=== PATIENT | male | born 1995 | race Caucasian/White ===

== ENCOUNTER 2021-05-13 08:26 | Emergency (ER) | payer OTHER ==
[~2021-05-13] VITALS: Ht 190.5 cm; Wt 129.6 kg
[2021-05-13] MEDS ORDERED: MORPHINE 4 MG/ML 1ML VIAL/SYRINGE (J2270) IV ONE (08:40)
[2021-05-13] MEDS ORDERED: KETOROLAC 30 MG/ML 1ML VIAL IV ONE (08:40)
[2021-05-13] MEDS ORDERED: ONDANSETRON 4MG/2ML VIAL IV ONE (08:40)
--- NOTE | 2021-05-13 09:08 | REP ---
INDICATION: trauma COMPARISON: None. TECHNIQUE: Two limited images of the right shoulder FINDINGS: Anterior glenohumeral joint dislocation noted. IMPRESSION: Anterior glenohumeral joint dislocation. <Electronically signed by Benito Hood > 05/13/21 0948
[2021-05-13] MEDS ORDERED: KETAMINE HCL 200 MG/20 ML VIAL IV ONE (09:15)
[2021-05-13] MEDS ORDERED: NS 1,000 ML IV SCH (09:15)
[2021-05-13] MEDS: propofoL 200 MG/20 ML VIAL IV.PROC PRN ×2 (09:39→09:41)
--- NOTE | 2021-05-13 10:04 | REP ---
INDICATION: POST REDUCTION COMPARISON: None. TECHNIQUE: Single portable AP view FINDINGS: Satisfactory reduction at the glenohumeral joint is suggested. IMPRESSION: Satisfactory reduction at the glenohumeral joint suggested. <Electronically signed by Benito Hood > 05/13/21 1000
[2021-05-13 11:56] VITALS: BP 155/70
== END 2021-05-13 12:14 | disposition home or self-care (01) ==
LOC: M ED 08:26
DX: S43.004A Unspecified dislocation of right shoulder joint, initial encounter (principal); X50.9XXA Other and unspecified overexertion or strenuous movements or postures, initial encounter; Y92.89 Other specified places as the place of occurrence of the external cause; Y93.B2 Activity, push-ups, pull-ups, sit-ups
CPT/HCPCS: 23650; 73020; 73030; 93041; 94760; 96361; 96374; 96375; 99152; 99291; J1885; J2270; J2405

== ENCOUNTER → 2021-07-23 | Outpatient (REF) | payer OTHER ==
[2021-07-23 11:05] LABS: SEMEN APPEARANCE OPAQUE (OPAQUE)
[2021-07-23 11:06] LABS: SEMEN VISCOSITY LIQUID (LIQUID); SEMEN VOLUME 3.2 ml (2.0-5.0); WBC CONCENTRATION >1 M/ml (<=1 M/ml)
[2021-07-23 11:07] LABS: SPERM CONCENTRATION 46.1 M/ml (>=15.0)
== END ==
LOC: M LAB REF 10:45
PROVIDERS: ATTEND Physician Assistant
DX: N46.9 Male infertility, unspecified (principal)

== ENCOUNTER → 2021-07-28 | Outpatient (REF) | payer OTHER ==
[2021-07-28 12:13] LABS: SEMEN APPEARANCE OPAQUE (OPAQUE); SEMEN VISCOSITY VISCOUS (LIQUID); SEMEN VOLUME 3.3 ml (2.0-5.0); WBC CONCENTRATION <=1 M/ml (<=1 M/ml)
[2021-07-28 12:14] LABS: SPERM CONCENTRATION 50.8 M/ml (>=15.0)
== END ==
LOC: M LAB REF 11:44
PROVIDERS: ATTEND Physician Assistant
DX: N46.9 Male infertility, unspecified (principal)

== ENCOUNTER → 2021-08-11 | Outpatient (REF) | payer OTHER ==
[2021-08-11 12:45] LABS: SEMEN APPEARANCE OPAQUE (OPAQUE); SEMEN VISCOSITY LIQUID (LIQUID); SPERM CONCENTRATION 122.1 M/ml (>=15.0); WBC CONCENTRATION <=1 M/ml (<=1 M/ml)
== END ==
LOC: M LAB REF 12:10
PROVIDERS: ATTEND Physician Assistant
DX: N46.9 Male infertility, unspecified (principal)

== ENCOUNTER 2021-10-21 08:42 | Emergency (ER) | payer OTHER ==
[~2021-10-21] VITALS: Ht 190.5 cm; Wt 138.3 kg
--- OUTSIDE RECORDS SUMMARY | 2021-10-21 08:49 | CCD ---
Author Author [facility] Address Unknown Phone Unavailable Care Team Providers Care Telecommunication Operator Name Role Phone JEREL ACEVEDO Unavailable Unavailable GASPER, FÁTIMA PA-C Unavailable Unavailable GASPER, FÁTIMA PA-C Unavailable Unavailable GASPER, FÁTIMA PA-C Unavailable Unavailable GASPER, FÁTIMA PA-C Unavailable Unavailable GASPER, FÁTIMA PA-C Unavailable Unavailable GASPER, FÁTIMA PA-C Unavailable Unavailable GASPER, FÁTIMA PA-C Unavailable Unavailable [facility] Unavailable Unavailable Re-disclosure Warning The records that you are about to access may contain information from federally-assisted alcohol or drug abuse programs. If such information is present, then the following federally mandated warning applies: This information has been disclosed to you from records protected by federal confidentiality rules (42 CFR part 2). The federal rules prohibit you from making any further disclosure of this information unless further disclosure is expressly permitted by the written consent of the person to whom it pertains or as otherwise permitted by 42 CFR part 2. A general authorization for the release of medical or other information is NOT sufficient for this purpose. The Federal rules restrict any use of the information to criminally investigate or prosecute any alcohol or drug abuse patient.The records that you are about to access may contain highly sensitive health information, the redisclosure of which is protected by Article 27-F of the [place] State Public Health law. If you continue you may have access to information: Regarding HIV / AIDS; Provided by facilities licensed or operated by the [facility] Office of Mental Health; or Provided by the [facility] Office for People With Developmental Disabilities. If such information is present, then the following [facility] mandated warning applies: This information has been disclosed to you from confidential records which are protected by state law. State law prohibits you from making any further disclosure of this information without the specific written consent of the person to whom it pertains, or as otherwise permitted by law. Any unauthorized further disclosure in violation of state law may result in a fine or correction sentence or both. A general authorization for the release of medical or other information is NOT sufficient authorization for further disc losure. Encounters Encounter Providers Location Date Indications Data Source(s ) Outpatient Attender: FÁTIMA MUNGUIACConsultant: [facility] 08/27/2021 09:17:45 AM EDT - 08/28/2021 10:26:00 AM EDT [facility] Patient discharged. Outpatient Attender: NUVIA Alonzoant: [facility] 07/23/2021 11:24:00 AM EDT - 07/23/2021 12:24:00 PM EDT [facility] Immunizations Vaccine Date Status Description Data Source(s) COVID-19 VACCINE Pfizer 04/21/2021 12:00:00 AM EDT completed [facility] Vaccine Series Complete: NOThis Data was Submitted to [facility] Via [employer]. Medications No Information Insurance Providers Payer name Policy type / Coverage type Policy ID Covered alliance party ID Covered alliance party's relationship to vance Policy Vance Plan Information [facility] ACTIVE DUTY [id number] SP [id number] [facility] HUMANA - O/P [id number] 18 [id number] Problems, Conditions, and Diagnoses Code Display Name Description Problem Type Effective Dates Data Source(s) X69109 Primary osteoarthritis, right shoulder P rimary osteoarthritis, right shoulder Diagnosis 08/28/2021 09:26:00 AM EDT [facility] M7521 Bicipital tendinitis, right shoulder Bicipital t endinitis, right shoulder Diagnosis 07/23/2021 11:24:00 AM EDT [facility] [id number] Other displaced fracture of upper end of right humerus, initial encounter for closed fracture Other displaced fracture of upper end of right humerus, initial encounter for closed fracture Diagnosis 021 11:24:00 AM EDT [facility] [id number] Superior glenoid labrum lesion of right shoulder, initial encounter Superior glenoid labrum lesion of right shoulder, initial encounter Diagnosis 07/23/2021 11:24:00 AM EDT [facility] Surgeries/Procedures No Information Results ID Date Data Source [id number] 08/29/2021 05:36:00 PM EDT [facility] [address] [place] [address] PHONE: [phone] FAX: [phone] Name .................. : CHANTAL Barbosa Acct Number.................. : [id number] ROOM. ................. : Number ................... : [id number] Stay type ............. : O/P Discharge Date......... ... : Admit Date ......... : Admit Phys .................... : Nov Date of ....... : 1995 Family Phys ................... : UNKNOWN Phone .................. : /[phone] Age ................................ : 25 Film# .................. .:[id number] Sex ................................. : M Unsigned transcriptions are preliminary reports and do not represent a medical or legal document CT UPPER EXT RT W/O CONT [id number] COMPLETE:08/28/21 10:17 88312 Reason for Exam: OTHER INSTABILITY, RT SHOULDER CT RIGHT SHOULDER WITHOUT IV CONTRAST INDICATION: Evaluation for potential glenoid bone loss. COMPARISON: None. Correlation with MRI 17/05/2021 CONTRAST: None 3-D reconstruction was created by the technologist with remote humeral head per request. This demonstrates bony deficiencies of the anterior-inferior glenoid described below. PROCEDURE: Axial images are obtained. Multiplanar reconstructions are performed. One or more of the following dose reduction techniques were utilized in effectively lowering the radiation dose for this examination: Automated Exposure Control, Adjustment of the mA and/or kV according to patient size, or Iterative reconstruction. FINDINGS: Hill-Sachs deformity posterior humeral head as noted on prior MR. There are a few small sclerotic foci in the humeral head and acromion typical of benign bone islands. Multiple subcortical cysts anterior inferior bony glenoid, Along the anterior inferior glenoid rim there are areas with cystic changes ex tending to cortical margin with loss of intact bony glenoid rim spanning approximately 1 cm. Details regarding labral repair and recurrent injury noted on MRI. No acute fracture. Mild arthropathic changes chromic clavicular joint. IMPRESSION: Bony degenerative changes anterior inferior glenoid with small areas of loss of intact bony glenoid rim. Page 1 of 2 [facility] [address] [place] [address] PHONE: [phone] FAX: [phone] Name .................. : [id number] ROOM. ................. : Number ................... : [id number] Stay type ............. : O/P Discharge Date......... ... : Admit Date ......... : Admit Phys .................... : GASPER NOV Date of ....... : 1995 Family Phys ....... ............ : UNKNOWN Phone .................. : [phone] Age ................................ : 25 Film# .................. .:[id number] Sex ................................. : M Unsigned transcriptions are preliminary reports and do not represent a medical or legal document CT UPPER EXT RT W/O CONT [id number] COMPLETE:08/28/21 10:17 72970 Reason for Exam: OTHER INSTABILITY, RT SHOULDER Electronically Reviewed and Signed By Blayne Jay MD , 08/29/21 17:36, SCB Transcribe Initials: VETO , Transcribe Date: 08/28/21 18:05, Dictation Date: Copy for: GASPER FAJARDO Copy for: 710 MED REC Page 2 of 2 Name Value Range Interpretation Code Description Data Mally rce(s) Supporting Document(s) ID Date Data Source [id number] 07/23/2021 02:07:00 [place] [address] PHONE: [phone] FAX: [phone] Name .................. : CHANTAL Barbosa Acct Number.................. : [id number] ROOM. ................. : MR Number ................... : [id number] Stay type ............. : O/P Discharge Date......... ... : 07/23/21 Admit Date .... ..... : 07/23/21 Admit Phys .................... : KRISTINA ASNTAMARIA Date of ....... : 1995 Family Phys ................... : UNKNOWN Phone .................. : [phone] Age ................................ : 25 Film# .................. .:[id number] Sex ................................. : M Unsigned transcriptions are preliminary reports and do not represent a medical or legal document INJECTION FOR SHOULDER ARTHRO [id number] COMPLETE:07/23/21 11:35 Reason for Exam: R SHOULDER PAIN EXAM: Arthrogram of the right shoulder HISTORY: Recurrent dislocation, shoulder pain COMPARISON: None. PROCEDURE: The risks and benefits of the procedure were discussed with the patient. Informed consent was obtained. A mixture of 10 cc Optiray 350, 10 cc saline and 0.15 cc of Gadavist was prepared. Local anesthesia applied using a 25-gauge needle. A needle was then advanced into the right shoulder joint. Confirmation of intra- articular needle tip placement was obtained using a small test injection. This was followed by injection of 15 mL of the dilute contrast mixture. The needle was withdrawn without complication. The patient tolerated the procedure well. Total radiation exposure time: 22 seconds Number of images obtained: 1 FINDINGS: No abnormalities identified. IMPRESSION: Successful arthrogram. MRI to follow. Electronically Reviewed and Signed By Ken Weinberg MD , 07/23/21 14:07, BAILEY Page 1 of [address] [place] [address] PHONE: [phone] FAX: [phone] Name .................. : CHANTAL Barbosa Acct Number.................. : [id number] ROOM. ................. : Number ................... : [id number] Stay type ............. : O/P Discharge Date......... ... : 07/23/21 Admit Date ......... : 07/23/21 Admit Phys .................... : KRISTINA SANTAMARIA Date of ....... : 1995 Family Phys ................... : UNKNOWN Phone .................. : [phone] Age ................................ : 25 Film# .................. .:[id number] Sex ................................. : M Unsigned transcriptions are preliminary reports and do not represent a medical or legal document INJECTION FOR SHOULDER ARTHRO [id number] COMPLETE:07/23/21 11:35 Reason for Exam: R SHOULDER PAIN Transcribe Initials: SSR, Transcribe Date: 07/23/21 13:48, Dictation Date: Copy for: KRISTINA BELTRÁN Copy for: 710 MED REC Page 2 of 2 Name Value Range Interpretation Code Description Data Mally rce(s) Supporting Document(s) ID Date Data Source [id number] 07/23/2021 02:10:00 PM EDT [facility] [address] [place] [address] PHONE: [phone] FAX: [phone] Name .................. : CHANTAL Barbosa Acct Number.................. : [id number] ROOM. ................. : MR Number ................... : [id number] Stay type ............. : O/P Discharge Date......... ... : 07/23/21 Admit Date .... ..... : 07/23/21 Admit Phys .................... : KRISTINA SANTAMARIA Date of ....... : 1995 Family Phys ................... : UNKNOWN Phone .................. : [phone] Age ................................ : 25 Film# .................. .:[id number] Sex ................................. : M Unsigned transcriptions are preliminary reports and do not represent a medical or legal document MRI UPPER EXT JOINT W CONT RT [id number] COMPLETE:07/23/21 13:05 [facility] Reason for Exam: R SHOULDER PAIN MRI RIGHT SHOULDER WITH CONTRAST INDICATION: Dislocation, shoulder pain. COMPARISON: None CONTRAST: Intra-articular contrast from a direct shoulder arthrogram. TECHNIQUE: Multiplanar imaging is performed of the shoulder using multiple pulse sequences. FINDINGS: ROTATOR CUFF: Joint space is opacified following an arthrogram. No extension of contrast into the subacromial subdeltoid bursa. The rotator cuff tendons are intact. No full thickness tear identified. No muscle atrophy or edema. BICPEPS TENDON: Long head biceps tendon intra-articular portion is nonvisualized. There is metal artifact below the bicipital groove just below the surgical neck of the humerus anteriorly and the biceps tendon is visible below this. This suggests prior tenodesis. GLENOID LABRUM: Multiple anchor tracks are seen in the anterior-inferior glenoid from previous labral repair. The anterior inferior labrum is blunted and irregular. It is displaced anteromedially 2 mm. Using the sagittal oblique is reference image with 9:00 anterior, the area involved extends from 79:00. The superior labrum is also small and blunted. Given the presence of a tenodesis, this may be from previous partial resection rather than a new tear. GLENOHUMERAL JOINT: Joint space is opacified following an arthrogram. Moderate thinning and irregularity of the articular cartilage in the anterior inferior glenoid. No marginal osteophytes. Page 1 of 2 [facility] [address] [place] [address] PHONE: [phone] FAX: [phone] Name .................. : CHANTAL Barbosa Acct Number.................. : [id number] ROOM. ................. : Number ................... : [id number] Stay type ............. : O/P Discharge Date......... ... : 07/23/21 Admit Date ......... : 07/23/21 Admit Phys .................... : KRISTINA SANTAMARIA Date of ....... : 1995 Family Phys ................... : UNKNOWN Phone .................. : [phone] Age ................................ : 25 Film# .................. .:[id number] Sex ................................. : M Unsigned transcriptions are preliminary reports and do not represent a medical or legal document MRI UPPER EXT JOINT W CONT RT [id number] COMPLETE:07/23/21 13:05 [facility] Reason for Exam: R SHOULDER PAIN ACROMIOCLAVICULAR JOINT: Acromion is type 1. No significant degenerative changes. BONES: Impaction deformity superior lateral humeral head. This is depressed approximately 4 mm. Area involved measures approximately 2 cm. No marrow edema. No acute fracture or bone contusion. No destructive bone lesion. BURSAE: No excess bursal fluid. IMPRESSION: 1. Previous labral repair. Recurrent tear of the anterior inferior labrum. 2. Blunting of the superior labrum which may be postsurgical. 3. Biceps tenodesis. 4. Chronic Hill-Sachs impaction deformity humeral head. 5. Moderate chondrosis of the anterior inferior glenoid. Electronically Reviewed and Signed By Ken Weinberg MD , 07/23/21 14:10, JWS Transcribe Initials: JENNIFER, Transcribe Date: 07/23/21 13:59, Dictation Date: Copy for: KRISTINA BELTRÁN Copy for: [address] [place] [address] REC Page 2 of 2 Name Value Range Interpretation Code Description Data Mally rce(s) Supporting Document(s) Procedure Social History No Information
--- NOTE | 2021-10-21 09:19 | REP ---
INDICATION: trauma COMPARISON: None. TECHNIQUE: Three views of the right shoulder FINDINGS: Anteroinferior glenohumeral joint dislocation. No obvious acute fracture. IMPRESSION: Anteroinferior glenohumeral joint dislocation. <Electronically signed by Benito Hood > 10/21/21 0924
[2021-10-21] MEDS ORDERED: fentaNYL 100 MCG/2 ML INJECTION (J3010) IV ONE (09:40)
[2021-10-21] MEDS ORDERED: NS 1,000 ML IV SCH (09:40)
[2021-10-21] MEDS ORDERED: propofoL 200 MG/20 ML VIAL IV.PROC PRN (09:40)
--- NOTE | 2021-10-21 10:12 | REP ---
INDICATION: post reduction COMPARISON: None. TECHNIQUE: Single portable neutral view of the right shoulder FINDINGS: Findings suggest satisfactory glenohumeral joint reduction. No obvious acute fracture. IMPRESSION: Satisfactory reduction. <Electronically signed by Benito Hood > 10/21/21 5562
--- OUTSIDE RECORDS SUMMARY | 2021-10-21 10:14 | CCD ---
Author Author [facility] Address Unknown Phone Unavailable Care Team Providers Care Implementation Analyst Name Role Phone JEREL ACEVEDO Unavailable Unavailable [...] is protected by Article 27-F of the [place] Public Health law. If you continue you may have access to information: Regarding HIV / AIDS; Provided by facilities licensed or operated by the [facility] Office of Mental Health; or Provided by the [facility] Office for People With Developmental Disabilities. If such information is present, then the following [facility] mandated warning applies: This information has been [...] law may result in a fine or chcf sentence or both. A general authorization for the release of medical or other information is NOT sufficient authorization for further disc losure. Encounters Encounter Providers Location Date Indications Data Source(s ) Outpatient Attender: FÁTIMA MUNGUIACConsultant: [facility] 08/27/2021 09:17:45 AM EDT - 08/28/2021 10:26:00 AM EDT [facility] Patient discharged. Outpatient Attender: NUVIA Alonzoant: [facility] 07/23/2021 11:24:00 AM EDT - 07/23/2021 12:24:00 PM EDT [facility] Immunizations Vaccine Date Status Description Data Source(s) COVID-19 VACCINE Pfizer 04/21/2021 12:00:00 AM EDT completed [facility] Vaccine Series Complete: NOThis Data was Submitted to [facility] MD. Medications No Information Insurance Providers Payer name Policy type / Coverage type Policy ID Covered alliance party ID Covered alliance party's relationship to vance Policy Vance Plan Information [facility] ACTIVE DUTY [id number] SP [id number] [facility] HUMANA - O/P [id number] 18 [id number] Problems, Conditions, and Diagnoses Code Display Name Description Problem Type Effective Dates Data Source(s) [id number] Primary osteoarthritis, right shoulder P rimary osteoarthritis, right shoulder Diagnosis 08/28/2021 09:26:00 AM EDT [facility] M7521 Bicipital tendinitis, right shoulder Bicipital t endinitis, right shoulder Diagnosis 07/23/2021 11:24:00 AM EDT [facility] [id number] Other displaced fracture of upper end of right humerus, initial encounter for closed fracture Other displaced fracture of upper end of right humerus, initial encounter for closed fracture Diagnosis 021 11:24:00 AM EDT [facility] [id number] Superior glenoid labrum lesion of right shoulder, initial encounter Superior glenoid labrum lesion of right shoulder, initial encounter Diagnosis 07/23/2021 11:24:00 AM EDT [facility] Surgeries/Procedures No Information Results ID Date Data Source [id number] 08/29/2021 05:36:00 PM EDT [facility] [address] [place] [address] PHONE: [phone] FAX: [phone] Name .................. : CHANTAL Barbosa Acct Number.................. : [id number] ROOM. ................. : Number ................... : [id number] Stay type ............. : O/P Discharge Date......... ... : Admit Date ......... : Admit Phys .................... : Nov Date of ....... : 1995 Family Phys ................... : UNKNOWN Phone .................. : /[phone] Age ................................ : 25 Film# .................. .:[id number] Sex ................................. : M Unsigned transcriptions are preliminary reports and do not represent a medical or legal document CT UPPER EXT RT W/O CONT [id number] COMPLETE:08/28/21 10:17 [id number] Reason for Exam: OTHER INSTABILITY, RT SHOULDER [...] bony glenoid rim. [address] [facility] [address] [place] [address] PHONE: [phone] FAX: [phone] Name .................. : [facility]AL [facility]osa [facility] Number.................. : [id number] ROOM. ................. : Number ................... : [id number] Stay type ............. : O/P Discharge Date......... ... : Admit Date ......... : Admit Phys .................... : GASPER NOV Date of ....... : 1995 Family Phys ....... ............ : UNKNOWN Phone .................. : [phone] Age ................................ : 25 Film# .................. .:[id number] Sex ................................. : M Unsigned transcriptions are preliminary reports and do not represent a medical or legal document CT UPPER EXT RT W/O CONT [id number] COMPLETE:08/28/21 10:17 71794 Reason for Exam: OTHER INSTABILITY, RT SHOULDER Electronically Reviewed and Signed By Blayne Jay MD , 08/29/21 17:36, SCB Transcribe Initials: VETO , Transcribe Date: 08/28/21 18:05, Dictation Date: Copy for: GASPER FAJARDO Copy for: 710 MED REC Page 2 of 2 Name Value Range Interpretation Code Description Data Mally rce(s) Supporting Document(s) ID Date Data Source [id number] 07/23/2021 02:07:00 [place] [address] PHONE: [phone] FAX: [phone] Name .................. : CHANTAL Barbosa Acct Number.................. : [id number] ROOM. ................. : MR Number ................... : [id number] Stay type ............. : O/P Discharge Date......... ... : 07/23/21 Admit Date .... ..... : 07/23/21 Admit Phys .................... : KRISTINA SANTAMARIA Date of ....... : 1995 Family Phys ................... : UNKNOWN Phone .................. : [phone] Age ................................ : 25 Film# .................. .:[id number] Sex ................................. : M Unsigned transcriptions are preliminary reports and do not represent a medical or legal document INJECTION FOR SHOULDER ARTHRO [id number] COMPLETE:07/23/21 11:35 Reason for Exam: R SHOULDER [...] follow. Electronically Reviewed and Signed By Ken Weibnerg MD , 07/23/21 14:07, [place] Page 1 of [address] [place] [address] PHONE: [phone] FAX: [phone] Name .................. : CHANTAL Barbosa Acct Number.................. : [id number] ROOM. ................. : Number ................... : [id number] Stay type ............. : O/P Discharge Date......... ... : 07/23/21 Admit Date ......... : 07/23/21 Admit Phys .................... : KRISTINA SANTAMARIA Date of ....... : 1995 Family Phys ................... : UNKNOWN Phone .................. : [phone] Age ................................ : 25 Film# .................. .:[id number] Sex ................................. : M Unsigned transcriptions are preliminary reports and do not represent a medical or legal document INJECTION FOR SHOULDER ARTHRO [id number] COMPLETE:07/23/21 11:35 Reason for Exam: R SHOULDER PAIN Transcribe Initials: SSR, Transcribe Date: 07/23/21 13:48, Dictation Date: Copy for: KRISTINA BELTRÁN Copy for: 710 MED REC Page 2 of 2 Name Value Range Interpretation Code Description Data Mally rce(s) Supporting Document(s) ID Date Data Source [id number] 07/23/2021 02:10:00 PM EDT [facility] [address] [place] [address] PHONE: [phone] FAX: [phone] Name .................. : CHANTAL Barbosa Acct Number.................. : [id number] ROOM. ................. : MR Number ................... : [id number] Stay type ............. : O/P Discharge Date......... ... : 07/23/21 Admit Date .... ..... : 07/23/21 Admit Phys .................... : KRISTINA SANTAMARIA Date of ....... : 1995 Family Phys ................... : UNKNOWN Phone .................. : [phone] Age ................................ : 25 Film# .................. .:[id number] Sex ................................. : M Unsigned transcriptions are preliminary reports and do not represent a medical or legal document MRI UPPER EXT JOINT W CONT RT [id number] COMPLETE:07/23/21 13:05 [facility] Reason for Exam: R SHOULDER PAIN MRI [...] No marginal osteophytes. Page [address] [facility] [address] [place] [address] PHONE: [phone] FAX: [phone] Name .................. : CHANTAL Barbosa Acct Number.................. : [id number] ROOM. ................. : Number ................... : [id number] Stay type ............. : O/P Discharge Date......... ... : 07/23/21 Admit Date ......... : 07/23/21 Admit Phys .................... : KRISTINA SANTAMARIA Date of ....... : 1995 Family Phys ................... : UNKNOWN Phone .................. : [phone] Age ................................ : 25 Film# .................. .:[id number] Sex ................................. : M Unsigned transcriptions are preliminary reports and do not represent a medical or legal document MRI UPPER EXT JOINT W CONT RT [id number] COMPLETE:07/23/21 13:05 [facility] Reason for Exam: R [...] Date: Copy for: KRISTINA BELTRÁN Copy for: [address] [place] [address] REC Page 2 of 2 Name Value Range Interpretation Code Description Data Mally rce(s) Supporting Document(s) Procedure Social History No Information
[2021-10-21 10:51] VITALS: BP 126/71
== END 2021-10-21 10:53 | disposition home or self-care (01) ==
LOC: M ED 08:42
DX: S43.004A Unspecified dislocation of right shoulder joint, initial encounter (principal); W19.XXXA Unspecified fall, initial encounter; Y92.89 Other specified places as the place of occurrence of the external cause; Y93.9 Activity, unspecified; Y99.1 Military activity; M24.419 Recurrent dislocation, unspecified shoulder
CPT/HCPCS: 23655; 73020; 73030; 93041; 94760; 96374; 99285; J3010